=== PATIENT | male | born 1965 | race Caucasian/White ===

== ENCOUNTER 2019-05-19 16:00 | Emergency (ER) | payer OTHER, SELFPAY ==
[2019-05-19 16:09] VITALS: BP 141/95; PULSE 81; RESP 18; TEMP 36.7; O2SAT 99; BMI 28.1
--- NOTE | 2019-05-19 16:10 | HMH.EDGENADL ---
ED Disposition Clinical Impression: Ureteropelvic junction (UPJ) obstruction, right Disposition: Home, Self-Care Condition on Discharge: Good Instructions: Kidney Stones -- Adult Additional Instructions: call Dr. Starkey at [phone] for appointment Prescriptions: Hydrocodone/Acetaminophen [[place] 10-325 Tablet] 1 tab PO Q4H PRN 3 Days #10 tab PRN Reason: Moderate Pain Referrals: Provider,Referral, [Referring] - Time of Disposition: 19:39 - Critical Care Critical Care Time: No Attestation: On , the high probability of a clinically significant, sudden or life threatening deterioration of the following system(s) required my full and direct attention, intervention and personal management. The time I documented below is in addition to time spent performing reported procedures but includes the following listed in this critical care notation. Medical Decision Making - Medical Records Medical records reviewed: Yes: I reviewed the patient's medical records. - Fazal Inquiry Pt receiving controlled substance: No Fazal was queried for this patient: No Vital Signs: 05/19/19 16:09 05/19/19 16:57 05/19/19 18:55 Temperature 98.1 F Temperature Source Oral Pulse Rate [Right Brachial] 81 77 67 Respiratory Rate 18 Blood Pressure [Right Arm] 141/95 H 131/78 103/60 L Blood Pressure Mean [Right Arm] 110 95 74 Blood Pressure Source [Right Arm] Automatic Cuff Blood Pressure Position [Right Arm] Sitting 02 Sat by Pulse Oximetry 99 100 99 Oxygen Delivery Method Room Air - Lab Data Lab results reviewed: Yes: I reviewed the patient's lab results. Lab Results 05/19/19 16:17: WBC 10.4, RBC 5.29, Hgb 14.7, Hct 45.1, MCV 85.2, MCH 27.8, MCHC 32.6, RDW 13.2, Plt Count 311, MPV 7.0 L, Neut % (Auto) 71.3, Lymph % (Auto) 21.1, [place] % (Auto) 4.9, Eos % (Auto) 2.4, Baso % (Auto) 0.3, Neut # (Auto) 7.4, Lymph # (Auto) 2.2, [place] # (Auto) 0.5, Eos # (Auto) 0.3, Baso # (Auto) 0.0 06/24/19 16:17: Sodium 140, Potassium 3.8, Chloride 103, Carbon Dioxide 24, Anion Gap 16.8 H, BUN 16, Creatinine 1.42 H, Estimated Creat Clear 71, Estimated GFR 52 L, Est GFR ( Amer) 63, Glucose 122 H, Calcium 9.4 05/19/19 18:26: Urine Color Yellow, Urine Appearance Clear, Urine pH 7.0, Ur Specific [place] 1.015, Urine Protein Trace, Urine Glucose (UA) Negative, Urine Ketones 1+, Urine Blood 2+, Urine Nitrate Negative, Urine Bilirubin Negative, Urine Urobilinogen 0.2, Ur Leukocyte Esterase Negative, Urine RBC 10-20, Urine WBC Occasional Result diagrams: 05/19/19 16:17 05/19/19 16:17 Orders (Tests/Meds): ED MEDICATIONS Discontinued Medications Generic Name Dose Route Start Last Admin Trade Name Freq PRN Reason Stop Dose Admin Ketorolac Tromethamine 30 mg 05/19/19 16:25 05/19/19 17:19 Toradol 30mg/Ml Vial IV 05/19/19 16:26 30 mg ONCE ONE Administration Ondansetron HCl 4 mg 05/19/19 16:27 05/19/19 17:19 Zofran 4mg/2ml Vial IV 05/19/19 16:28 4 mg ONCE ONE Administration - Physician Consults Physician Consulted: lito Time: 19:36 Reason -: Pt condition, Obstetrical Eval/Care Comment/Response: call office in am for appointment General Adult HPI - General Stated complaint: Kidney Stone Time Seen by Provider: 05/19/19 16:28 Source of Information: Patient Limitations: No Limitations - History of Present Illness HPI narrative: pain all day, rlq and flank. History of calculi, eval [facility] and ? Carol Cagle Has had intermittent R flank pain for two months, never lasted. - Related Data Previous Rx's Medication Instructions Recorded nekpfopksucvifa-ryyorokjiurpqam-OK 10 ml PO Q4-6H PRN #200 ml 11/29/18 2 mg-30 mg-10 mg/5 mL oral syrup Hydrocodone/Acetaminophen [[place] 1 tab PO Q4H PRN 3 Days #10 tab 05/19/19 10-325 Tablet] Allergies Allergy/AdvReac Type Severity Reaction Status Date / Time No Known Allergies Allergy Verified 11/29/18 17:16 [facility] History - Hepatitis A Scr
--- NOTE | 2019-05-19 16:14 | ED_ITS ---
ED Disposition Clinical Impression: Ureteropelvic junction (UPJ) obstruction, right Disposition: Home, Self-Care Condition on Discharge: Good Instructions: Kidney Stones -- Adult Additional Instructions: call Dr. Starkey at [phone] for appointment Prescriptions: Hydrocodone/Acetaminophen [[place] 10-325 Tablet] 1 tab PO Q4H PRN 3 Days #10 tab PRN Reason: Moderate Pain Referrals: Provider,Referral, [Referring] - Time of Disposition: 19:39 - Critical Care Critical Care Time: No Attestation: On , the high probability of a clinically significant, sudden or life threatening deterioration of the following system(s) required my full and direct attention, intervention and personal management. The time I documented below is in addition to time spent performing reported procedures but includes the following listed in this critical care notation. Medical Decision Making - Medical Records Medical records reviewed: Yes: I reviewed the patient's medical records. - Fazal Inquiry Pt receiving controlled substance: No Fazal was queried for this patient: No Vital Signs: 05/19/19 16:09 05/19/19 16:57 05/19/19 18:55 Temperature 98.1 F Temperature Source Oral Pulse Rate [Right Brachial] 81 77 67 Respiratory Rate 18 Blood Pressure [Right Arm] 141/95 H 131/78 103/60 L Blood Pressure Mean [Right Arm] 110 95 74 Blood Pressure Source [Right Arm] Automatic Cuff Blood Pressure Position [Right Arm] Sitting 02 Sat by Pulse Oximetry 99 100 99 Oxygen Delivery Method Room Air - Lab Data Lab results reviewed: Yes: I reviewed the patient's lab results. Lab Results 05/19/19 16:17: WBC 10.4, RBC 5.29, Hgb 14.7, Hct 45.1, MCV 85.2, MCH 27.8, MCHC 32.6, RDW 13.2, Plt Count 311, MPV 7.0 L, Neut % (Auto) 71.3, Lymph % (Auto) 21.1, [place] % (Auto) 4.9, Eos % (Auto) 2.4, Baso % (Auto) 0.3, Neut # (Auto) 7.4, Lymph # (Auto) 2.2, [place] # (Auto) 0.5, Eos # (Auto) 0.3, Baso # (Auto) 0.0 06/24/19 16:17: Sodium 140, Potassium 3.8, Chloride 103, Carbon Dioxide 24, Anion Gap 16.8 H, BUN 16, Creatinine 1.42 H, Estimated Creat Clear 71, Estimated GFR 52 L, Est GFR ( Amer) 63, Glucose 122 H, Calcium 9.4 05/19/19 18:26: Urine Color Yellow, Urine Appearance Clear, Urine pH 7.0, Ur Specific [place] 1.015, Urine Protein Trace, Urine Glucose (UA) Negative, Urine Ketones 1+, Urine Blood 2+, Urine Nitrate Negative, Urine Bilirubin Negative, Urine Urobilinogen 0.2, Ur Leukocyte Esterase Negative, Urine RBC 10-20, Urine WBC Occasional Result diagrams: 05/19/19 16:17 05/19/19 16:17 Orders (Tests/Meds): ED MEDICATIONS Discontinued Medications Generic Name Dose Route Start Last Admin Trade Name Freq PRN Reason Stop Dose Admin Ketorolac Tromethamine 30 mg 05/19/19 16:25 05/19/19 17:19 Toradol 30mg/Ml Vial IV 05/19/19 16:26 30 mg ONCE ONE Administration Ondansetron HCl 4 mg 05/19/19 16:27 05/19/19 17:19 Zofran 4mg/2ml Vial IV 05/19/19 16:28 4 mg ONCE ONE Administration - Physician Consults Physician Consulted: lito Time: 19:36 Reason -: Pt condition, Obstetrical Eval/Care Comment/Response: call office in am for appointment General Adult HPI - General Stated c
--- NOTE | 2019-05-19 16:26 | CT_ITS ---
CT abdomen pelvis wo con CLINICAL INDICATION: ITS.REASON: flank pain ORDERING PHYSICIAN: Ja Gonzalez MD PATIENT AGE: 53 years COMPARISON: None TECHNIQUE: Axial images obtained with sagittal and coronal reformats. All CT scans at the facility use one or more dose reduction, viz: automated exposure control, ma/kV adjustment per patient size (including targeted exams where dose is matched to indication, i.e. head), or iterative reconstruction technique. PROCEDURE: Oral Contrast: None IV Contrast: None . FINDINGS: Lower thorax: No acute finding ABDOMEN: Liver: Liver is somewhat lower density compared to the spleen. Gallbladder: Nondistended. No radio opaque stones. Pancreas: No masses or peripancreatic fluid collections. Spleen: Unremarkable. Adrenals: Unremarkable Kidneys/ureters: There is a 6.9 mm right UPJ stone causing right renal mild calyectasis and some haziness along the wall of the right renal pelvis likely some edema. The remainder of the right ureter is normal. The left ureter and left kidney are normal. Stomach bowel: There are numerous colonic diverticula without fluid collections or inflammatory changes. Appendix: No evidence of appendicitis. PELVIS: Reproductive: Unremarkable Bladder: Nondistended. No obvious stones or masses. ABDOMEN & PELVIS: Peritoneum: There is a benign uncomplicated fat-containing anterior abdominal wall hernia just cephalad to the level of the umbilicus. Lymph nodes: No enlarged lymph nodes apparent. Vasculature: No evidence of abdominal aortic aneurysm. No retroperitoneal hemorrhage evident. Bones: No acute fracture IMPRESSION: Mildly obstructing right UPJ stone. Some of the haziness around the right renal pelvis could be obstructive change although correlated to rule out any infectious process. Uncomplicated clonic diverticulosis and anterior abdominal wall fat-containing hernia.
[2019-05-19 16:37] LABS: Basophils % 0.3 % (0.1-2.0); Eosinophils # 0.3 K/mm3 (0.0-0.4); Eosinophils % 2.4 % (0.1-12.0); Hematocrit 45.1 % (42.0-52.0); Hemoglobin 14.7 g/dL (14.1-18.0); Lymphocytes # 2.2 K/mm3 (0.7-4.5); Lymphocytes % 21.1 % (10-50); Mean Corpuscular HGB Conc 32.6 g/dL (31.8-35.4); Mean Corpuscular Hemoglobin 27.8 pg (27.0-31.2); Mean Corpuscular Volume 85.2 fl (80-94); Monocytes # 0.5 K/mm3 (0.1-1.0); Monocytes % 4.9 % (1.7-9.3); Neutrophils # 7.4 K/mm3 (1.8-7.8); Neutrophils % 71.3 % (37.0-80.0); Platelet Count 311 K/mm3 (142-424); Red Blood Count 5.29 M/mm3 (4.60-6.20); Red Cell Distribution Width 13.2 % (11.5-17.5); White Blood Count 10.4 K/mm3 (4.8-10.8)
[2019-05-19 16:40] LABS: Anion Gap 16.8 mEq/L (5-15); Blood Urea Nitrogen 16 mg/dL (7-18); Calcium 9.4 mg/dL (8.5-10.1); Carbon Dioxide 24 mmol/L (21.0-32.0); Chloride 103 mmol/L (98-107); Creatinine Clearance Estimated 71 mL/min (50-200); Creatinine,Serum 1.42 mg/dL (0.70-1.30); Estimated Glomerular Filt Rate 52 ml/min (>60); GFR (African American) 63 ML/MIN (>60); Glucose 122 mg/dL (74-106); Potassium 3.8 mmoL/L (3.5-5.1); Sodium 140 mmol/L (136-145)
[2019-05-19 16:57] VITALS: BP 131/78; PULSE 77; O2SAT 100
[2019-05-19 18:30] LABS: Appearance,Urine CLEAR (Clear); Bilirubin,Urine Negative (Negative); Blood, Urine 2+ (Negative); Color,Urine YELLOW (Yellow); Glucose,Urine (UA) Negative (Negative); Ketones,Urine 1+ (Negative); Leukocyte Esterase,Urine Negative (Negative); Microscopic, Urine URINE MICROSCOPIC (MICROSCOPIC); Nitrate,Urine Negative (Negative); Protein,Urine TRACE (Negative); Specific Gravity, Urine 1.015 (1.005-1.030); Urobilinogen,Urine 0.2 EU/dl (0.2)
[2019-05-19 18:36] LABS: WBC,Urine Occasional #/hpf (0-3)
[2019-05-19 18:55] VITALS: BP 103/60; PULSE 67; O2SAT 99
[2019-05-19 19:46] VITALS: BP 112/65; PULSE 69; RESP 17; TEMP 36.8; O2SAT 98
== END 2019-05-19 19:48 | disposition home or self-care (01) ==
PROVIDERS: Emergency Provider Emergency Medicine; PCP Family Medicine
DX: N13.5 Crossing vessel and stricture of ureter without hydronephrosis (principal); I10 Essential (primary) hypertension
CPT/HCPCS: 74176; 80048; 81001; 85025; 96374; 96375; 99283; J2405

== ENCOUNTER → 2019-06-17 11:06 | Outpatient (CLI) | payer OTHER, SELFPAY ==
--- NOTE | 2019-06-17 11:10 | XR_ITS ---
XR KUB HISTORY: ITS.REASON: KIDNEY STONE ORDERING PHYSICIAN: Keith Starkey MD PATIENT AGE: 53 years COMPARISON: None FINDINGS: The bowel gas pattern is unremarkable. No obvious obstruction.. No abnormal calcifications are evident. No obvious renal or ureteral calculi.. No acute bony anomalies evident. There is a punctate 2 mm left pelvic calcification just proximal to the level of the ischial spine. This was seen on a CT exam from 05/19/2019 and is likely a phlebolith. The fecal density in the colon obscures some of the renal area suspected on the right side. Underlying small renal calculi on the right could be obscured by the colonic feces. IMPRESSION: Left pelvic calcification likely a phlebolith. No definite calculi overlying the renal areas although some of these areas especially on the right are obscured by the colonic feces.
[2019-07-02 15:52] LABS: Specimen Type Kidney
[2019-07-02 15:54] LABS: Ca oxalate dihydrate 30%
[2019-07-02 15:55] LABS: Photo COMMENT:
[2019-07-02 15:56] LABS: Please note: COMMENT:
== END ==
PROVIDERS: PCP Family Medicine; Visit Provider Urology
DX: N20.0 Calculus of kidney (principal)
CPT/HCPCS: 74018; 82370

== ENCOUNTER → 2019-06-17 16:20 | Outpatient (CLI) | payer OTHER, SELFPAY | PROVIDERS: Visit Provider Urology | DX: N20.0 Calculus of kidney (principal) | CPT/HCPCS: 82370 ==

== ENCOUNTER 2020-12-31 12:07 | Emergency (ER) | payer OTHER, SELFPAY ==
[2020-12-31] VITALS (7 sets, daily range): BP systolic 136–185; BP diastolic 68–98; PULSE 57–78; RESP 16–18; TEMP 36.6–37.1; O2SAT 98–100; BMI 29.9
--- NOTE | 2020-12-31 12:29 | CT_ITS ---
PROCEDURE: CT ABDOMEN PELVIS W CON CLINICAL INDICATION: pain mid abdominal pain, possible umbilical hernia COMPARISON: CT ABDPELWO CT abdomen pelvis wo con from 05/19/2019 TECHNIQUE: IV Contrast: 75ML Isovue 370 Oral Contrast None Axial images obtained with sagittal and coronal reformats. All CT scans at the facility use one or more dose reduction, viz: automated exposure control, ma/kV adjustment per patient size (including targeted exams where dose is matched to indication, i.e. head), or iterative reconstruction technique. FINDINGS: LOWER THORAX: There are mild atelectatic changes in the lung bases. ABDOMEN & PELVIS: The liver at and spleen have an unremarkable appearance. Adrenal glands have a nodular configuration nonspecific. Pancreas has an unremarkable appearance. No renal or ureteral calculi. No hydronephrosis. Unremarkable appendix. No intestinal obstruction or free air. There is rogers colonic diverticulosis but no evidence of diverticulitis. No evidence of small-bowel obstruction. There is a small umbilical hernia which contains fat. Approximately 2-3 cm superior to the umbilicus there is increased density present within the subcutaneous fat of the anterior abdominal wall. There was a hernia in this region on the previous exam. The abdominal wall defect is not well demonstrated on today's exam. There is increased density within the anterior abdominal wall fat which was previously the area of the hernia sac. The increased density raises the question of incarcerated fat within the hernia in the absence of any interval surgery. No bowel is evident this region. There is a left inguinal hernia present containing fat. There is degenerative disc disease at L4-5 and L5-S1. Bulging partially calcified disc is present at L4-L5 with bilateral foraminal narrowing. IMPRESSION: 1. There is increased soft tissue density somewhat irregular in nature at a previously known area where there was an abdominal wall hernia. The hernia orifice is not well delineated. In the absence of interval surgery this increased density could represent inflammatory change from incarcerated fat within the hernia. There does not appear to be bowel within this region but there is bowel just deep to this region along the abdominal wall. 2. Small umbilical hernia containing fat. 3. Pancolonic diverticulosis without diverticulitis. 4. Small left inguinal hernia containing fat Dictated by: Johny Mauro MD 12/31/2020 15:09 Johny Mauro MD in [place] 12/31/2020 15:09
[2020-12-31 12:35] LABS: Basophils % 0.4 % (0.1-2.0); Eosinophils # 0.2 K/mm3 (0.0-0.4); Eosinophils % 2.7 % (0.1-12.0); Hematocrit 46.3 % (42.0-52.0); Hemoglobin 15.2 g/dL (14.1-18.0); Lymphocytes # 2.3 K/mm3 (0.7-4.5); Lymphocytes % 32.6 % (10-50); Mean Corpuscular HGB Conc 32.7 g/dL (31.8-35.4); Mean Corpuscular Hemoglobin 29.5 pg (27.0-31.2); Mean Platelet Volume 7.7 fl (7.4-10.4); Monocytes # 0.4 K/mm3 (0.1-1.0); Monocytes % 5.3 % (1.7-9.3); Neutrophils # 4.2 K/mm3 (1.8-7.8); Neutrophils % 59.1 % (37.0-80.0); Platelet Count 278 K/mm3 (142-424); Red Blood Count 5.14 M/mm3 (4.60-6.20); Red Cell Distribution Width 13.7 % (11.5-17.5); White Blood Count 7.1 K/mm3 (4.8-10.8)
[2020-12-31 12:39] LABS: Alanine Aminotransferase 27 U/L (12-78); Albumin Level 4.6 g/dl (3.5-5.0); Albumin/Globulin Ratio 1.3 (1.1-1.8); Alkaline Phosphatase 72 U/L (38-126); Anion Gap 10.8 mEq/L (5-15); Aspartate Amino Transferase 32 U/L (17-59); Bilirubin,Total 0.6 mg/dl (0.2-1.3); Blood Urea Nitrogen 16 mg/dl (9-20); Calcium 9.8 mg/dl (8.4-10.2); Carbon Dioxide 27 mmol/L (22.0-30.0); Chloride 106 mmol/L (98-107); Creatinine Clearance Estimated 96 mL/min (50-200); Estimated Glomerular Filt Rate 78 ml/min (>60); GFR (African American) 94 ML/MIN (>60); Globulin 3.5 g/dL (1.3-3.2); Glucose 127 mg/dl (74-100); Lipase 129 U/L (23-300); Potassium 3.8 mmoL/L (3.5-5.1); Sodium 140 mmol/L (136-145); Total Protein,Serum 8.1 g/dl (6.3-8.2)
--- NOTE | 2020-12-31 13:00 | HMH.EDABDPAI ---
ED Disposition Clinical Impression: Abdominal wall hernia Disposition: Home, Self-Care Condition on Discharge: Good Instructions: DI for Ventral Hernia Prescriptions: Hydrocod/Acet 5/325 mg [[place] 5/325mg tablet] 1 tab PO Q6HP PRN #7 tab PRN Reason: Moderate Pain Transmission Status: Received by [facility] #[id number] Referrals: Aracelis Woodard [Primary Care Provider] - Dakotah Gibson MD [Staff Physician] - - Critical Care Critical Care Time: No Attestation: On 12/31/20, the high probability of a clinically significant, sudden or life threatening deterioration of the following system(s) required my full and direct attention, intervention and personal management. The time I documented below is in addition to time spent performing reported procedures but includes the following listed in this critical care notation. Medical Decision Making - Medical Records Medical records reviewed: Yes: I reviewed the patient's medical records. - Fazal Inquiry Pt receiving controlled substance: Yes Fazal was queried for this patient: No Reason not queried -: Emergent pt cond-no time Risks and benefits of using a controlled substance: were discussed with pt by me Vital Signs: 12/31/20 12:08 12/31/20 12:24 12/31/20 12:51 Temperature 98.7 F Temperature Source Oral Pulse Rate [Radial] 71 72 63 Respiratory Rate 16 18 18 Blood Pressure [Right Arm] 176/97 H 165/98 H 168/88 H Blood Pressure Mean [Right Arm] 123 120 114 Blood Pressure Source [Right Arm] Blood Pressure Position [Right Arm] Sitting 02 Sat by Pulse Oximetry 98 100 98 Oxygen Delivery Method Room Air 12/31/20 13:38 12/31/20 14:00 12/31/20 15:00 Temperature Temperature Source Pulse Rate [Radial] 63 60 57 L Respiratory Rate 18 18 18 Blood Pressure [Right Arm] 155/86 H 136/94 H 185/92 H Blood Pressure Mean [Right Arm] 109 108 123 Blood Pressure Source [Right Arm] Automatic Cuff Automatic Cuff Automatic Cuff Blood Pressure Position [Right Arm] Sitting Supine Supine 02 Sat by Pulse Oximetry 98 99 99 Oxygen Delivery Method Room Air Room Air Room Air - Lab Data Lab Results 12/31/20 12:20: WBC 7.1, RBC 5.14, Hgb 15.2, Hct 46.3, MCV 90.0, MCH 29.5, MCHC 32.7, RDW 13.7, Plt Count 278, MPV 7.7, Neut % (Auto) 59.1, Lymph % (Auto) 32.6, [place] % (Auto) 5.3, Eos % (Auto) 2.7, Baso % (Auto) 0.4, Neut # (Auto) 4.2, Lymph # (Auto) 2.3, [place] # (Auto) 0.4, Eos # (Auto) 0.2, Baso # (Auto) 0.0 12/31/20 12:20: Sodium 140, Potassium 3.8, Chloride 106, Carbon Dioxide 27, Anion Gap 10.8, BUN 16, Creatinine 1.00, Estimated Creat Clear 96, Estimated GFR 78, Est GFR ( Amer) 94, Glucose 127 H, Calcium 9.8, Total Bilirubin 0.6, AST 32, ALT 27, Alkaline Phosphatase 72, Total Protein 8.1, Albumin 4.6, Globulin 3.5 H, Albumin/Globulin Ratio 1.3, Lipase 129 Result diagrams: 12/31/20 12:20 12/31/20 12:20 Orders (Tests/Meds): ED MEDICATIONS Discontinued Medications Generic Name Dose Route Start Last Admin Trade Name Freq PRN Reason Stop Dose Admin Diatrizoate Meglum/Diatrizoate Sod 30 ml 12/31/20 12:29 12/31/20 12:35 Diatrizoate Lachel[place] 66% & Diatrizoate Na 10% 30ml Udc PO 12/31/20 12:30 30 ml ONCE ONE Administration Sodium Chloride 1,000 mls @ 999 mls/hr 12/31/20 12:30 12/31/20 12:36 Sod Chlor 0.9% 1000ml Bag IV 12/31/20 13:30 999 mls/hr .Q1H1M RADHA Administration Iopamidol 75 ml 12/31/20 14:42 12/31/20 14:42 Iopamidol-370 (76%);100ml Bottle IV 12/31/20 14:43 75 ml ONCE ONE Administration Morphine Sulfate 4 mg 12/31/20 12:29 12/31/20 12:36 Morphine 4mg/Ml Syringe IV 12/31/20 12:30 4 mg ONCE ONE Administration Ondansetron HCl 4 mg 12/31/20 12:29 12/31/20 12:35 Ondansetron 4mg/2ml Vial IV 12/31/20 12:30 4 mg ONCE ONE Administration Sodium Chloride 10 ml 12/31/20 14:42 12/31/20 14:42 Sodium Chloride 0.9% 10ml Syr (Rad Only) IV 12/31/20 14:43 10 ml ONCE ONE Administration - C
== END 2020-12-31 16:57 | disposition home or self-care (01) ==
PROVIDERS: Emergency Provider Emergency Medicine; PCP Family Medicine
DX: K43.9 Ventral hernia without obstruction or gangrene (principal); I10 Essential (primary) hypertension; Z87.442 Personal history of urinary calculi
CPT/HCPCS: 74177; 80053; 83690; 85025; 96365; 96375; 99283; J2405; Q9967

== ENCOUNTER → 2021-02-06 13:32 | Outpatient (CLI) | payer OTHER, SELFPAY ==
[2021-02-06 15:35] LABS: Coronavirus 19 IgG Antibody Negative (Negative); Coronavirus 19 IgM Antibody Negative (Negative)
== END ==
PROVIDERS: PCP Family Medicine; Visit Provider Surgery
DX: Z01.818 Encounter for other preprocedural examination (principal); Z20.822 Contact with and (suspected) exposure to COVID-19; K43.9 Ventral hernia without obstruction or gangrene
CPT/HCPCS: 36415; 86328

== ENCOUNTER → 2021-02-07 09:26 | Outpatient (CLI) | payer OTHER, SELFPAY ==
[2021-02-07 09:42] LABS: Basophils # 0.1 K/mm3 (0-0.2); Basophils % 0.9 % (0.1-2.0); Eosinophils # 0.5 K/mm3 (0.0-0.4); Hematocrit 46.8 % (42.0-52.0); Hemoglobin 15.2 g/dL (14.1-18.0); Lymphocytes # 2.4 K/mm3 (0.7-4.5); Lymphocytes % 40.5 % (10-50); Mean Corpuscular HGB Conc 32.5 g/dL (31.8-35.4); Mean Corpuscular Hemoglobin 29.3 pg (27.0-31.2); Mean Corpuscular Volume 90.1 fl (80-94); Mean Platelet Volume 7.5 fl (7.4-10.4); Monocytes # 0.4 K/mm3 (0.1-1.0); Monocytes % 6.2 % (1.7-9.3); Neutrophils # 2.6 K/mm3 (1.8-7.8); Neutrophils % 44.5 % (37.0-80.0); Platelet Count 276 K/mm3 (142-424); Red Blood Count 5.19 M/mm3 (4.60-6.20); Red Cell Distribution Width 13.6 % (11.5-17.5); White Blood Count 5.9 K/mm3 (4.8-10.8)
[2021-02-07 10:16] LABS: Chloride 104 mmol/L (98-107); Sodium 141 mmol/L (136-145)
[2021-02-07 10:17] LABS: Potassium 5.3 mmoL/L (3.5-5.1)
[2021-02-07 10:19] LABS: Blood Urea Nitrogen 10 mg/dl (9-20); Estimated Glomerular Filt Rate 69 ml/min (>60); GFR (African American) 84 ML/MIN (>60)
[2021-02-07 10:20] LABS: Anion Gap 13.3 mEq/L (5-15); Carbon Dioxide 29 mmol/L (22.0-30.0); Glucose 114 mg/dl (74-100)
== END ==
PROVIDERS: Visit Provider Surgery
DX: K43.9 Ventral hernia without obstruction or gangrene (principal)
CPT/HCPCS: 36415; 80048; 85025

== ENCOUNTER 2021-02-08 07:06 | Day surgery (SDC) | payer OTHER, SELFPAY ==
[2021-02-08] VITALS (11 sets, daily range): BP systolic 126–157; BP diastolic 76–99; PULSE 57–84; RESP 16–18; TEMP 36.2–36.3; O2SAT 91–99; BMI 29.9
--- NOTE | 2021-02-08 07:52 | P.PN_ITS ---
[facility] Anesthesia Checklist - Patient Identification Patient Identification: Arm Band - Structural Data Admitted From: Home Planned Operative Procedure/s: Verntral hernia repair Consent for Planned Operative Procedure(s) Verified: Yes - Additional verifications Anesthesia Reactions: No Hx Blood Transfusions: No Blood Transfusion Reaction: No - Cardiovascular Assessment Heart Sounds: S1 & S2 Pulse Strength: Baseline - Airway Assessment C-Spine Mobility Assessed: Yes TMJ Mobility Assessed: Yes Dentition: Dentures-good fit - Neurological Assessment Level of Consciousness: Awake, Alert Hx Seizures: No Numbness or tingling in extremities: No - Anesthesia Plan Anesthesia Risk discussed: Yes Anesthesia Plan: Verified ASA Class: II Anesthesia Type: General [facility] History I have reviewed the patient's past medical history: Yes Medical History: Reports:: Cancer (slin), Hypertension, Kidney Stones Denies:: Diabetes Mellitus Type 1, Diabetes Mellitus Type 2, Internal Pacemaker, Lung Disease, MRSA, Seizures *Have you ever received a pneumonia vaccine?: No *Have you received a flu vaccine this season?: Yes Other Medical History: Reports: Other. Denies: Blood Transfusion Reaction Anesthesia experience/problems:: None Other Surgeries: Yes: No Previous Surgery, Colonoscopy, Other ([facility]). No: Pacemaker Amputation: No Fractures: No - *Social History Smoking Status: Never smoker Alcohol Intake: never Alcohol Intake Frequency:: holidays/special occasions only Substance Use Type: denies use *Occupational Status:: employed Housing: house Household Members: significant other *Travel in the last 8 weeks: None Family Hx:: Coronary Artery Disease, Diabetes
--- NOTE | 2021-02-08 10:23 | HMH.OPNOTE ---
Date of procedure: 02/08/21 Pre-op Diagnosis:: Ventral hernia Post-op Diagnosis:: Same Procedure performed:: Laparoscopic repair of ventral hernia with placement of 15.2 cm x 10.2 cm Bard ventral light mesh Surgeon:: Dakotah Gibson MD DRILL [employer]ESS OPERATOR:: Stuart Hampton Anesthesia: GETMaura Estimated blood loss (mL): 10 Clinical Note:: Patient is a 55-year-old male who was referred by the emergency department for hernia. His primary care provider is Aracelis Woodard in [place]. He has apparently known hernia in the periumbilical location superior and slightly to the right of the umbilicus. He had severe pain occurring on 12/31/2020 and presented to the emergency department. He underwent CT scan which revealed increased soft tissue density 2 to 3 cm above the umbilicus possibly consistent with hernia with incarcerated fat. There is also noted to be a small umbilical hernia containing fat. There is an incidental inguinal hernia containing fat. Operative findings:: He had a defect to the right and immediately superior to the umbilicus. Defect at the umbilical area was minimal. There was fatty infiltration of the liver. No obvious pathologic abnormalities in the left upper quadrant. Operative note:: Patient was taken the operating room. He was given preoperative intravenous antibiotics. In the operating room he was placed in a supine position. General anesthesia was induced. Abdomen was prepped and draped in the standard surgical fashion. A 5 mm incision was made in the left subcostal area. Under laparoscopic visualization 5 mm trocar was inserted in the left upper quadrant. CO2 pneumoperitoneum was achieved to 15 mmHg. Abdominal surveillance was carried out and herniated omentum was identified. Ultimately additional 12 mm trocar was inserted in the right subcostal area and a 5 mm trocar was inserted in the left lower abdomen. With traction the herniated omentum was able to be fully reduced from the hernia defect intact. Surveillance revealed this defect noted with some laxity at the umbilical area adjacent to this. Boundaries of the defects were marked with a skin marker. To allow for good fascial overlap a 15.2 cm x 10.2 cm Bard ventral light mesh was brought onto the field. Abdominal wall was marked for oblique placement so that there would be good coverage of both defects. Mesh was rolled and inserted into the peritoneal cavity. Through a tiny 1 mm incision the mesh positioning system balloon tubing was brought through the anterior abdominal wall and the positioning system balloon was inflated. Mesh was oriented intracorporeally. It was secured around its periphery with multiple OPTi fix tacks . The positioning system balloon was removed. A few additional tacks were placed more medially to help eliminate space of the hernia. Repair appeared adequate with generous coverage and fascial overlap. There was good hemostasis. Trochars were then removed as CO2 pneumoperitoneum was evacuated. Anterior fascia at the right subcostal 12 mm incision was closed with 0 Vicryl suture. Local anesthetic was infiltrated. Skin incisions closed with 4-0 Monocryl in a subcuticular fashion. Steri-Strips and dressings were applied. Condition: stable Disposition: PACU Complications:: None immediately apparent.
--- NOTE | 2021-02-08 10:26 | P.PN_ITS ---
[facility] Anesthesia Record Part I Intake, IV Amount: 1,000 Estimated blood loss (mL): 10 Urine output (mL): 0 Blood Pressure: 157/99 SaO2: 91 Pulse Rate: 84 Respiratory Rate: 16 Temperature: 97.2 F Patient is:: Drowsy, Stable Stable to PACU at:: 10:20
--- NOTE | 2021-02-08 13:40 | P.PN_ITS ---
[facility] Anesthesia Record Part II Discharge Time: 11:00 Destination: Surgical Day Care (OP Surgery) PACU nurse assessment reviewed?: Yes Patient Condition:: Good Anesthesia Complications:: None Swallowing reflex intact?: Yes Cyanosis?: No Blood Pressure: 142/88 Pulse Rate: 61 Temperature: 97.2 F Mental Status: Alert & Oriented Pain level:: 0 Nausea and/or vomitting:: None Intake, IV Amount: 0
== END 2021-02-08 11:35 | disposition home or self-care (01) ==
LOC: OR 07:07
PROVIDERS: PCP Family Medicine; Visit Provider Surgery
PROC: 0WQF4ZZ Repair Abdominal Wall, Percutaneous Endoscopic Approach (ICD-10-PCS; CPT 49654; principal; 2021-02-08 08:30)
DX: K43.2 Incisional hernia without obstruction or gangrene (principal); K76.0 Fatty (change of) liver, not elsewhere classified; I10 Essential (primary) hypertension; Z85.828 Personal history of other malignant neoplasm of skin; Z87.442 Personal history of urinary calculi; Z83.3 Family history of diabetes mellitus; Z82.49 Family history of ischemic heart disease and other diseases of the circulatory system; Z91.018 Allergy to other foods; Z79.899 Other long term (current) drug therapy
CPT/HCPCS: 49654; 96374; C1781; J2405; J2710

== ENCOUNTER 2022-07-31 23:30 | Emergency (ER) | payer BC, SELFPAY ==
[2022-07-31 23:31] VITALS: BP 190/123; PULSE 70; RESP 17; TEMP 36.6; O2SAT 98; BMI 33.3
--- NOTE | 2022-07-31 23:45 | CT_ITS ---
PROCEDURE INFORMATION: Exam: CT Abdomen And Pelvis Without Contrast Exam date and time: 07/31/2022 11:46 PM Age: 56 years old Clinical indication: Abdominal pain; Flank; Right; Additional info: Right flank pain TECHNIQUE: Imaging protocol: Computed tomography of the abdomen and pelvis without contrast. Radiation optimization: All CT scans at this facility use at least one of these dose optimization techniques: automated exposure control; mA and/or kV adjustment per patient size (includes targeted exams where dose is matched to clinical indication); or iterative reconstruction. COMPARISON: CT ABDOMEN PELVIS W CON 12/31/2020 2:38 PM FINDINGS: Liver: Normal. No mass. Gallbladder and bile ducts: Normal. No calcified stones. No ductal dilation. Pancreas: Normal. No ductal dilation. Spleen: Normal. No splenomegaly. Adrenal glands: Normal. No mass. Kidneys and ureters: There is mild hydronephrosis on the right and ureteral dilatation secondary to a 2 mm stone in the distal right ureter. Punctate non-obstructing left renal stone. Stomach and bowel: Diverticulosis in the colon without diverticulitis. No colitis or small bowel obstruction. Appendix: No evidence of appendicitis. Intraperitoneal space: Unremarkable. No free air. No significant fluid collection. Vasculature: Unremarkable. No abdominal aortic aneurysm. Lymph nodes: Unremarkable. No enlarged lymph nodes. Urinary bladder: Unremarkable as visualized. Reproductive: Unremarkable as visualized. Bones/joints: Degenerative changes at L4-L5 and L5-S1 with disc bulging and marginal osteophyte formation resulting in neural foraminal and central canal narrowing. Soft tissues: Small bilateral inguinal hernias with fat. IMPRESSION: There is mild hydronephrosis on the right and ureteral dilatation secondary to a 2 mm stone in the distal right ureter.
[2022-07-31 23:50] LABS: Microscopic, Urine URINE MICROSCOPIC (MICROSCOPIC)
[2022-07-31 23:51] LABS: Appearance,Urine CLEAR (Clear); Bilirubin,Urine Negative (Negative); Blood, Urine 2+ (Negative); Color,Urine YELLOW (Yellow); Glucose,Urine (UA) Negative (Negative); Ketones,Urine Negative (Negative); Leukocyte Esterase,Urine Negative (Negative); Nitrate,Urine Negative (Negative); Protein,Urine Negative (Negative); Specific Gravity, Urine 1.025 (1.005-1.030)
[2022-07-31 23:53] LABS: Basophils # 0.1 K/mm3 (0-0.2); Basophils % 1.1 % (0.1-2.0); Eosinophils # 0.4 K/mm3 (0.0-0.4); Eosinophils % 5.6 % (0.1-12.0); Hematocrit 43.8 % (42.0-52.0); Hemoglobin 14.3 g/dL (14.1-18.0); Lymphocytes # 3.2 K/mm3 (0.7-4.5); Lymphocytes % 43.3 % (10-50); Mean Corpuscular HGB Conc 32.6 g/dL (31.8-35.4); Mean Corpuscular Hemoglobin 29.7 pg (27.0-31.2); Monocytes # 0.4 K/mm3 (0.1-1.0); Monocytes % 6.1 % (1.7-9.3); Neutrophils # 3.2 K/mm3 (1.8-7.8); Platelet Count 293 K/mm3 (142-424); Red Blood Count 4.81 M/mm3 (4.60-6.20); White Blood Count 7.3 K/mm3 (4.8-10.8)
[2022-07-31 23:59] LABS: Alanine Aminotransferase 32 U/L (12-78); Albumin Level 4.2 g/dl (3.5-5.0); Albumin/Globulin Ratio 1.3 (1.1-1.8); Alkaline Phosphatase 105 U/L (38-126); Anion Gap 11.6 mEq/L (5-15); Aspartate Amino Transferase 33 U/L (17-59); Blood Urea Nitrogen 13 mg/dl (9-20); Calcium 9.6 mg/dl (8.4-10.2); Carbon Dioxide 28 mmol/L (22.0-30.0); Chloride 103 mmol/L (98-107); Creatinine Clearance Estimated 106 mL/min (50-200); Estimated Glomerular Filt Rate 77 ml/min (>60); GFR (African American) 94 ML/MIN (>60); Globulin 3.3 g/dL (1.3-3.2); Glucose 116 mg/dl (74-100); Potassium 3.6 mmoL/L (3.5-5.1); Sodium 139 mmol/L (136-145); Total Protein,Serum 7.5 g/dl (6.3-8.2)
[2022-08-01] VITALS: BP 184/103; PULSE 67; O2SAT 98
[2022-08-01] LABS: RBC,Urine 20-50 #/hpf (0-3); Squamous Epithelial Cell,Urine Occasional #/hpf (0-5)
[2022-08-01] LABS: Bilirubin,Total 0.1 mg/dl (0.2-1.3)
[2022-08-01 00:05] LABS: C-Reactive Protein 1.4 mg/L (0-4)
[2022-08-01 00:06] VITALS: BP 171/101; PULSE 65; TEMP 37.1; O2SAT 97
--- NOTE | 2022-08-01 00:22 | PC.NURSE ---
PT REPORTS THAT PAIN HAS IMPROVED WITH MEDICATIONS. PT UPDATED WITH PLAN OF CARE AND EXPECTED WAIT TIMES. WCM.
[2022-08-01 00:23] LABS: Erythrocyte Sedimentation Rate 20 mm/hr (0-20)
--- NOTE | 2022-08-01 00:27 | HMH.EDPGI ---
Discharge Plan Disposition Patient Disposition: Home, Self-Care Prescriptions Prescriptions: New tamsulosin [Flomax] 0.4 mg capsule 0.4 mg PO DAILY Qty: 10 0RF No Action lisinopril 5 mg tablet 5 mg PO DAILY Referrals Follow up/Referrals: Aracelis Woodard [Primary Care Provider] - See instructions Clinical Impressions Clinical Impression: Renal colic on right side, HTN (hypertension) Instructions Patient Instructions: DI for Kidney Stones Discharge ED Provider: Ja Ybarra Pediatric GI HPI General Chief Complaint: Abdominal Pain Stated Complaint: Abdomen and side pain Time Seen by Provider: 08/01/22 00:28 Mode of Arrival: Ambulatory Source of Information: Patient and Medical Record Limitations: No Limitations Description of Symptoms (Recalled from ER Triage Doc. by RN): RIGHT FLANK PAIN THAT STARTED AROUD 11PM. PT STATES IT IS SIMILAR TO PREVIOUS KIDNEY STONES. PT REPORTS THAT PAIN IS SHARP IN CHARACTER 05/05. History of Present Illness HPI narrative: acute rt flank pain MD complaint: nausea Onset (ago): hour(s) Fever: No Hydration status: tolerating fluids Related Data Home Medications Medication Instructions Recorded Confirmed lisinopril 5 mg tablet 5 mg PO DAILY bp 05/20/19 07/31/22 Previous Rx's Medication Instructions Recorded tamsulosin 0.4 mg capsule (Flomax) 0.4 mg PO DAILY #10 caps 08/01/22 Allergies Allergy/AdvReac Type Severity Reaction Status Date / Time wheat Allergy Severe Rash Verified 02/28/21 09:58 barley Allergy Verified 02/28/21 09:58 PFSH PFS Medical History (Updated 08/01/22 @ 00:35 by Ja Ybarra MD) Hypercholesteremia Hypertension Surgical History (Updated 07/31/22 @ 23:54 by Allegra Pickett RN) History of lithotripsy Social History Smoking Status: Never smoker alcohol intake: never substance use type: denies use current occupational status: employed Travel in the last 8 weeks: None household members: significant other housing: house current occupational exposures/hazards: Yes caffeine: No ROS Obtained: Yes All systems reviewed & no additional complaints except as documented Physical Exam General General appearance: alert Head Head exam: normocephalic Eye Eye exam: Present PERRL and EOMI ENT ENT exam: Present mucous membranes moist Neck Neck exam: Present trachea midline Respiratory Respiratory exam: Absent respiratory distress Cardiovascular Cardiovascular exam: Present regular rate Abdominal Exam Abdominal exam: Present soft Extremities Exam Extremities exam: Present full ROM Neurological Exam Neurological exam: Present alert and CN II-XII intact Skin Skin exam: Absent rash Medical Decision Making Medical Records Medical records reviewed: Yes I reviewed the patient's medical records. Fazal Inquiry Pt receiving controlled substance: No Vital Signs: 07/31/22 23:31 Temperature 97.8 F Temperature Source Oral Pulse Rate [Left Radial] 70 Respiratory Rate 17 Blood Pressure [Left Arm] 190/123 H Blood Pressure Mean [Left Arm] 145 Blood Pressure Source [Left Arm] Automatic Cuff 02 Sat by Pulse Oximetry 98 Oxygen Delivery Method Room Air Lab Data Lab results reviewed: Yes I reviewed the patient's lab results. Lab Results 07/31/22 23:45: WBC 7.3, RBC 4.81, Hgb 14.3, Hct 43.8, MCV 91.0, MCH 29.7, MCHC 32.6, RDW 14.0, Plt Count 293, MPV 8.0, Neut % (Auto) 44.0, Lymph % (Auto) 43.3, Harvey % (Auto) 6.1, Eos % (Auto) 5.6, Baso % (Auto) 1.1, Neut # (Auto) 3.2, Lymph # (Auto) 3.2, Harvey # (Auto) 0.4, Eos # (Auto) 0.4, Baso # (Auto) 0.1 07/31/22 23:45: ESR 20 07/31/22 23:45: Sodium 139, Potassium 3.6, Chloride 103, Carbon Dioxide 28, Anion Gap 11.6, BUN 13, Creatinine 1.00, Estimated Creat Clear 106, Estimated GFR 77, Est GFR ( Amer) 94, Glucose 116 H, Calcium 9.6, Total Bilirubin 0.1 L, AST 33, ALT 32, Alkaline Phosphatase 105, C-Reactive Protein 1.4, Total Protein 7.5, Albumin 4.2
[2022-08-01 00:47] VITALS: BP 168/94; PULSE 78; RESP 17; TEMP 36.7; O2SAT 97
== END 2022-08-01 00:57 | disposition home or self-care (01) ==
PROVIDERS: Emergency Provider Emergency Medicine; PCP Family Medicine
DX: N13.2 Hydronephrosis with renal and ureteral calculous obstruction (principal); I10 Essential (primary) hypertension; Z79.899 Other long term (current) drug therapy; E78.5 Hyperlipidemia, unspecified
CPT/HCPCS: 74176; 80053; 81001; 84145; 85025; 85651; 86140; 96365; 96375; 99284; J2405

== ENCOUNTER 2022-08-01 16:55 | Emergency (ER) | payer BC, SELFPAY ==
--- NOTE | 2022-08-01 17:22 | PC.NURSE ---
ED MD AT BEDSIDE FOR EVALUATION
[2022-08-01 17:26] VITALS: BP 170/94; PULSE 67; RESP 18; TEMP 36.9; O2SAT 97; BMI 33.3
--- NOTE | 2022-08-01 17:39 | PC.NURSE ---
MEDICATED PER EMAR, PT TALKING ON PHONE. NO NEEDS AT THIS TIME
[2022-08-01 18:01] VITALS: BP 146/80; PULSE 62; RESP 18; O2SAT 96
--- NOTE | 2022-08-01 18:40 | PC.NURSE ---
1840 ROUNDED ON PT, REPORTS FEELING MUCH BETTER
--- NOTE | 2022-08-01 18:47 | PC.NURSE ---
PT UP TO BR
--- NOTE | 2022-08-01 18:53 | HMH.EDGENADL ---
Discharge Plan Disposition Patient Disposition: Home, Self-Care Condition: Good Prescriptions Prescriptions: New ketorolac 10 mg tablet 10 mg PO Q8H 5 Days Qty: 15 0RF No Action lisinopril 5 mg tablet 5 mg PO DAILY tamsulosin [Flomax] 0.4 mg capsule 0.4 mg PO DAILY Qty: 10 0RF Referrals Follow up/Referrals: Aracelis Woodard [Primary Care Provider] - See instructions Clinical Impressions Clinical Impression: Nephrolithiasis Instructions Patient Instructions: Kidney Stones -- Adult Discharge ED Provider: Uri Fuller General Adult HPI General Chief complaint: Urogenital-Male Stated complaint: poss kidney stone Time Seen by Provider: 08/01/22 18:00 Mode of Arrival: Ambulatory Limitations: No Limitations Description of Symptoms (Recalled from ER Triage Doc. by RN): PT IN ED LAST NIGHT FOR KIDNEY STONE, INCREASED PAIN SINCE 0700 History of Present Illness HPI narrative: Patient is a 56-year-old male with a past medical history of recent diagnosis of nephrolithiasis who comes in with persistent right flank pain and right suprapubic pain. He states that he was seen last night and subsequently diagnosed with a kidney stone. He says he was sent home with Percocet but he has not been helping. He says that he continues to have blood in his urine and his symptoms have returned. Continues to deny any fever or chills. Denies any other complaints at this time. Related Data Home Medications Medication Instructions Recorded Confirmed lisinopril 5 mg tablet 5 mg PO DAILY bp 05/20/19 07/31/22 Previous Rx's Medication Instructions Recorded ketorolac 10 mg tablet 10 mg PO Q8H 5 days #15 tabs 08/01/22 tamsulosin 0.4 mg capsule (Flomax) 0.4 mg PO DAILY #10 caps 08/01/22 Allergies Allergy/AdvReac Type Severity Reaction Status Date / Time wheat Allergy Severe Rash Verified 02/28/21 09:58 barley Allergy Verified 02/28/21 09:58 [facility] Medical History (Updated 08/01/22 @ 18:52 by Uri Fuller MD) Hypercholesteremia Hypertension Surgical History (Updated 07/31/22 @ 23:54 by Allegra Pickett RN) History of lithotripsy Family History (Updated 08/01/22 @ 17:49 by Nafisa Sewell RN) Other No significant family history Social History (Updated 08/01/22 @ 17:50 by Nafisa Sewell RN) Smoking Status: Never smoker alcohol intake: never substance use type: denies use current occupational status: employed Travel in the last 8 weeks: None household members: significant other housing: house current occupational exposures/hazards: Yes caffeine: No ROS Obtained: Yes All systems reviewed & no additional complaints except as documented A 14 point review of system was obtained and otherwise negative except per HPI. Physical Exam General General appearance: alert and in no apparent distress Head Head exam: atraumatic, normocephalic and normal inspection Eye Eye exam: Present normal appearance, PERRL and EOMI ENT ENT exam: Present normal exam, normal oropharynx, mucous membranes moist, TM's normal bilaterally and normal external ear exam Neck Neck exam: Present normal inspection, full ROM and trachea midline; Absent meningismus or lymphadenopathy Chest Chest inspection: Present normal inspection and symmetric chest wall rise; Absent tenderness Respiratory Respiratory exam: Present normal lung sounds bilaterally; Absent respiratory distress Cardiovascular Cardiovascular exam: Present regular rate and normal rhythm; Absent JVD Abdominal Exam Abdominal exam: Present soft and normal bowel sounds; Absent distention, tenderness or guarding Extremities Exam Extremities exam: Present normal inspection, full ROM and normal capillary refill; Absent calf tenderness Back Exam Back exam: Present normal inspection and CVA tenderness (R); Absent tenderness or CVA tenderness (L) Neurological Exam Neurological exam: Present alert and oriented X3 Psychiatric Psych
[2022-08-01 19:04] VITALS: BP 138/87; PULSE 80; RESP 18; TEMP 36.9; O2SAT 98
== END 2022-08-01 19:08 | disposition home or self-care (01) ==
PROVIDERS: Emergency Provider Student in an Organized Health Care Education/Training Program; PCP Family Medicine
DX: N20.0 Calculus of kidney (principal); I10 Essential (primary) hypertension; E78.00 Pure hypercholesterolemia, unspecified; Z91.018 Allergy to other foods
CPT/HCPCS: 96372; 99284

== ENCOUNTER 2025-08-17 10:13 | Outpatient (CLI) | payer MEDICARE, SELFPAY ==
--- OUTSIDE RECORDS SUMMARY | 2025-08-17 10:30 | XMS_ITS | Patient Health Record ---
[facility] Address [address] [place] [id number] Care Team Providers Care Picker Machine Operator Name Role Phone Milagros Biggs Primary Care Provider Reason For Referral No Information Medications Medication SIG (Take, Route, Frequency, Duration) Notes Start Date End Date Status Omeprazole 40 MG 1 cap(s) orally once a day 09/28/2014 Active Lisinopril 2.5 MG 1 tab(s) orally once a day 04/22/2014 Active Triamterene-HCTZ 37.5-25 MG 1 tab(s) orally once a day 09/28/2014 Active Atorvastatin Calcium 10 MG 1 tab(s) orally once a day (at bedtime) 04/22/2014 Not-Taking CoQ-10 100 MG 1 cap(s) orally once a day 04/22/2014 Not-Taking Problems Problem Type SNOMED Code ICD Code Onset Dates Problem Status W/U Status Risk Notes Problem Hypertension (96629311) Hypertension (401.9) Active confirmed Problem Gastroesophageal reflux disease (disorder) (086779282) GERD [Gastroesophageal reflux disease] (530.81) Active confirmed Problem Hyperlipidemia (04630953) Hyperlipidemia (272.4) Active confirmed Plan Of Treatment No Information Insurance Providers Payer Name Payer Address Payer Phone Subscriber Number Group Number Insured Name Patient Relationship to Insured Coverage Start Date Coverage End Date [employer] [address] [place] [address] [id number] Tavarez, Christopher Self - patient is the insured Medical (General) History Medical History History ICD Code HTN 02/09/14 A1c=5.9% Surgical History Surgery Date(Month/Year) mouth surgery, total mouth extraction 19 Hospitalization History Reason Date(Month/Year) cellulitis in left leg 2004
[2025-08-17 11:25] LABS: Blood Urea Nitrogen 11 mg/dl (9-20); Creatinine,Serum 0.90 mg/dl (0.66-1.25); Estimated Glomerular Filt Rate 86 ml/min (>60); GFR (African American) 105 ML/MIN (>60)
[2025-08-17 14:30] LABS: Microscopic, Urine URINE MICROSCOPIC (MICROSCOPIC)
[2025-08-17 15:55] LABS: Bilirubin,Urine Negative (Negative); Color,Urine YELLOW (Yellow); Glucose,Urine (UA) Negative (Negative); Ketones,Urine Negative (Negative); Leukocyte Esterase,Urine Negative (Negative); PH,Urine 7.5 (5.0-8.5); Protein,Urine 1+ (Negative); Specific Gravity, Urine 1.020 (1.005-1.030); Urobilinogen,Urine 0.2 EU/dl (0.2)
[2025-08-17 16:02] LABS: RBC,Urine TNTC #/hpf (0-3)
[2025-08-17 16:03] LABS: Bacteria,Urine 1+ /lpf; Squamous Epithelial Cell,Urine Occasional #/hpf (0-5)
== END 2025-08-17 23:59 | disposition home or self-care (01) ==
LOC: LAB 10:14
PROVIDERS: PCP Family Medicine; Visit Provider Urology
DX: N20.0 Calculus of kidney (principal); N52.9 Male erectile dysfunction, unspecified
CPT/HCPCS: 36415; 81001; 82565; 84520; 87086